=== PATIENT | male | born 1995 | race Caucasian/White ===

== ENCOUNTER 2020-02-16 13:35 | Observation (INO) | payer SELFPAY ==
[~2020-02-16 13:35] MED LIST: GLYCOPYRROLATE 1 MG/5 ML VIAL ONE; NEOSTIGMINE METHYLSULFATE 10 MG/10 ML VIAL ONE
--- NOTE | 2020-02-16 14:10 | ER Document Report ---
ED Medical Screen (RME) - General Chief Complaint: Chest Pain Stated Complaint: CHEST PAIN Time Seen by Provider: 02/16/20 14:06 Mode of Arrival: Ambulatory Information source: Patient Notes: 24-year-old male presented to ED for complaint of epigastric/chest/abdominal pain. He states he is also been short of breath. He states the symptoms started on Friday. He denies any fevers throughout this. He states he has not been around anyone that had the coronavirus of any areas that have high incidence of morales virus. Patient is alert oriented respirations regular nonlabored at this time. He states he has had this pain in the past but this is the first time in 3 to 4 months. He states they have never really told him what the pain is from. Patient is alert oriented respirations regular nonlabored speaking in full sentences. I have greeted and performed a rapid initial assessment of this patient. A comprehensive ED assessment and evaluation of the patient, analysis of test results and completion of medical decision making process will be conducted by an additional ED providers. Past Medical History - General Information source: Patient - Social History Cigarette use (# per day): Yes - Vapor cigarette Frequency of alcohol use: Occasional Drug Abuse: None Occupation: Unemployed Lives with: Family Family history: Reviewed & Not Pertinent - Past Medical History Cardiac Medical History: Reports: None Pulmonary Medical History: Reports: None EENT Medical History: Reports: None Neurological Medical History: Reports: None Endocrine Medical History: Reports: None Renal/ Medical History: Reports: None Malignancy Medical History: Reports None GI Medical History: Reports: None Musculoskeltal Medical History: Reports None Skin Medical History: Reports None Psychiatric Medical History: Reports: Hx Anxiety, Hx Attention Deficit Hyperactivity Disorder, Hx Depression, Hx Post Traumatic Stress Disorder Traumatic Medical History: Reports: None Infectious Medical History: Reports: None Surgical Hx: Negative Past Surgical History: Reports: None - Immunizations Immunizations up to date: Yes Hx Diphtheria, Pertussis, Tetanus Vaccination: Yes - 2019 Physical Exam - Vital signs Vitals: Temp Pulse Resp BP Pulse Ox 98 F 92 24 H 152/85 H 100 02/16/20 13:55 02/16/20 13:55 02/16/20 13:55 02/16/20 13:55 02/16/20 13:55 Course - Vital Signs Vital signs: Temp Pulse Resp BP Pulse Ox 98 F 92 24 H 152/85 H 100 02/16/20 13:55 02/16/20 13:55 02/16/20 13:55 02/16/20 13:55 02/16/20 13:55
[2020-02-16] MEDS ORDERED: ASPIRIN 81 MG TABLET, CHEWABLE PO ONE (14:11)
--- NOTE | 2020-02-16 14:48 | ER Document Report ---
ED GI/ - General Chief Complaint: Epigastric Pain Stated Complaint: CHEST PAIN Time Seen by Provider: 02/16/20 14:06 Mode of Arrival: Ambulatory Notes: CHIEF COMPLAINT: Epigastric abdominal pain, shortness of breath and chest discomfort HPI: 24-year-old otherwise healthy male presenting for evaluation of a constant epigastric discomfort with nausea that began 2 days ago. Patient believes that he has some shortness of breath and chest discomfort related to this because of the discomfort and nausea. States he had something similar 1.5 years ago, states he had a chest x-ray done and was told he would be fine. States he has not been able to eat or drink because of the nausea associated with eating or drinking. Has not had a fever. No diarrhea. States sister had her gallbladder out in her early 20s ROS: See HPI - all other systems were reviewed and are otherwise negative Constitutional: no fever Eyes: no drainage, no blurred vision ENT: no runny nose, no sore throat Cardiovascular: Positive chest pain Resp: Positive SOB, no cough GI: no vomiting, no diarrhea, + abdominal pain, positive nausea : no dysuria Integumentary: no rash Allergy: no hives Musculoskeletal: no extremity pain or swelling Neurological: no numbness/tingling, no weakness MEDICATIONS: I agree with the patient medications as charted by the RN. ALLERGIES: I agree with the allergies as charted by the RN. PAST MEDICAL HISTORY/PAST SURGICAL HISTORY: Reviewed and agree as charted by RN. SOCIAL HISTORY: Reviewed and agree as charted by RN. FAMILY HISTORY: No significant familial comorbid conditions directly related to patient complaint EXAM: Reviewed vital signs as charted by RN. CONSTITUTIONAL: Alert and oriented and responds appropriately to questions. Well-appearing; well-nourished HEAD: Normocephalic; atraumatic EYES: PERRL; Conjunctivae clear, sclerae non-icteric ENT: normal nose; no rhinorrhea; moist mucous membranes; pharynx without lesions noted, no uvula edema or deviation, no tonsillar hypertrophy, phonation normal NECK: Supple without meningismus; non-tender; no cervical lymphadenopathy, no masses CARD: RRR; no murmurs, no clicks, no rubs, no gallops; symmetric distal pulses RESP: Normal chest excursion without splinting or tachypnea; breath sounds clear and equal bilaterally; no wheezes, no rhonchi, no rales, pulse oximetry 100% on room air not hypoxic ABD/GI: Normal bowel sounds; non-distended; soft, moderate tenderness to the epigastric region on palpation, mild tenderness in the right upper quadrant on palpation, no rebound, no guarding; no palpable organomegaly or masses. BACK: The back appears normal and is non-tender to palpation, there is no CVA tenderness EXT: Normal ROM in all joints; non-tender to palpation; no cyanosis, no effusions, no edema SKIN: Normal color for age and race; warm; dry; good turgor; no acute lesions noted NEURO: Moves all extremities equally; Motor and sensory function intact PSYCH: The patient's mood and manner are appropriate. Grooming and personal hygiene are appropriate. MDM: 24-year-old male with epigastric pain for 2 days, initial cardiac work-up from triage process. Believe this is more likely GI issue rather than a cardiac issue and is otherwise healthy male. He has reproducible abdominal pain. Will add lipase, ultrasound of the right upper quadrant to evaluate for cholelithiasis or cholecystitis - Related Data Allergies/Adverse Reactions: No Known Allergies Allergy (Verified 02/16/20 14:17) Home Medications: zoloft. buspirone. trazadone. adderall Past Medical History - General Information source: Patient - Social History Smoking Status: Never Smoker Cigarette use (# per day): Yes - Vapor cigarette Chew tobacco use (# tins/day): No Frequency of alcohol use: Occasional Drug Abuse: None Occupation: Unemployed Lives with: Family Family History: Reviewed & Not Pertinent Patient has suicidal ideation: No Patient has homicidal ideation: No - Past Medical History Cardiac Medical History: Reports: None Pulmonary Medical History: Reports: None EENT Medical History: Reports: None Neurological Medical History: Reports: None Endocrine Medical History: Reports: None Renal/ Medical History: Reports: None Malignancy Medical History: Reports None GI Medical History: Reports: None Musculoskeletal Medical History: Reports None Skin Medical History: Reports None Psychiatric Medical History: Reports: Hx Anxiety, Hx Attention Deficit Hyperactivity Disorder, Hx Depression, Hx Post Traumatic Stress Disorder Traumatic Medical History: Reports: None Infectious Medical History: Reports: None Surgical Hx: Negative Past Surgical History: Reports: None - Immunizations Immunizations up to date: Yes Hx Diphtheria, Pertussis, Tetanus Vaccination: Yes - 2019 Physical Exam - Vital signs Vitals: Temp Pulse Resp BP Pulse Ox 98 F 92 24 H 152/85 H 100 02/16/20 13:55 02/16/20 13:55 02/16/20 13:55 02/16/20 13:55 02/16/20 13:55 Course - Re-evaluation Re-evalutation: 02/16/20 16:18 Patient shows a mild leukocytosis of 14.4. Liver functions and lipase are normal. His ultrasound of the gallbladder is abnormal. Shows thickening of the gallbladder wall diffusely, radiologist believes it might be a chronic in flammatory issue although patient has only been having pain for 2 days. Shows no gallstones. Dr. Ozuna is in the OR I left a message for him through the OR nurse. 02/16/20 16:[address] Ozuna, he believes patient has cholecystitis will take patient to the OR - Vital Signs Vital signs: Temp Pulse Resp BP Pulse Ox 98.4 F 78 18 159/94 H 96 02/16/20 15:52 02/16/20 15:52 02/16/20 15:52 02/16/20 15:52 02/16/20 15:52 - Laboratory Result Diagrams: 02/16/20 15:16 02/16/20 15:16 Laboratory results interpreted by me: 02/16/20 02/16/20 14:13 15:16 WBC 14.4 H Absolute Neuts (auto) 11.5 H Seg Neutrophils % 79.9 H Urine Protein 30 H Urine Ketones TRACE H Urine Ascorbic Acid 40 H Discharge - Discharge Clinical Impression: Acute cholecystitis Condition: Stable Disposition: ADMITTED INPATIENT Admitting Provider: Dodieist Delia Ozuna Unit Admitted: Surgical Floor
--- NOTE | 2020-02-16 14:56 | RADIOLOGY REPORT (SQ) ---
EXAM DESCRIPTION: CHEST 2 VIEWS COMPLETED DATE/TIME: 02/16/2020 2:46 pm REASON FOR STUDY: Chest pain/epigastric pain COMPARISON: None. EXAM PARAMETERS: NUMBER OF VIEWS: two views TECHNIQUE: Digital Frontal and Lateral radiographic views of the chest acquired. RADIATION DOSE: NA LIMITATIONS: none FINDINGS: LUNGS AND PLEURA: No opacities, masses or pneumothorax. No pleural effusion. MEDIASTINUM AND HILAR STRUCTURES: No masses or contour abnormalities. HEART AND VASCULAR STRUCTURES: Heart normal size. No evidence for failure. BONES: No acute findings. HARDWARE: None in the chest. OTHER: No other significant finding. IMPRESSION: NO ACUTE RADIOGRAPHIC FINDING IN THE CHEST. TECHNICAL DOCUMENTATION: JOB ID: [id number] 2010 [employer]- All Rights Reserved Reading location - IP/workstation name: [email or web address]
[2020-02-16 15:14] LABS: APPEARANCE,URINE SLIGHTLY-CLOUDY; BILIRUBIN,URINE NEGATIVE (NEGATIVE); COLOR,URINE YELLOW; GLUCOSE, URINE NEGATIVE (NEGATIVE); KETONES,URINE TRACE mg/dL (NEGATIVE); PROTEIN,URINE 30 mg/dL (NEGATIVE); URINE SPECIFIC GRAVITY 1.025; UROBILINOGEN,URINE NEGATIVE mg/dL (<2.0)
[2020-02-16] MEDS ORDERED: ONDANSETRON HCL INJ/PF 4 MG/2 ML SDV IV ONE ×2 (15:29→16:32)
[2020-02-16 15:32] LABS: ABSOLUTE BASOPHILS # (AUTO) 0.1 10^3/uL (0.0-0.2); ABSOLUTE LYMPHOCYTES (AUTO) 2.1 10^3/uL (0.5-4.7); ABSOLUTE MONOCYTES (AUTO) 0.7 10^3/uL (0.1-1.4); ABSOLUTE NEUT (AUTO) 11.5 10^3/uL (1.7-8.2); BASOPHILS % (AUTO) 0.4 % (0-2); EOSINOPHILS % (AUTO) 0.2 % (0-6); HEMATOCRIT 44.8 % (37.9-51.0); HEMOGLOBIN 15.5 g/dL (13.5-17.0); LYMPHOCYTES % (AUTO) 14.7 % (13-45); MEAN CORPUSCULAR HEMOGLOBIN 30.3 pg (27.0-33.4); MEAN CORPUSCULAR HGB CONC 34.6 g/dL (32.0-36.0); MEAN CORPUSCULAR VOLUME 88 fl (80-97); MONOCYTES % (AUTO) 4.8 % (3-13); PLATELET COUNT 299 10^3/uL (150-450); RED BLOOD COUNT 5.11 10^6/uL (4.35-5.55); RED CELL DISTRIBUTION WIDTH 12.8 % (11.5-14.0); SEGMENTED NEUTROPHILS % (AUTO) 79.9 % (42-78); TOTAL CELLS COUNTED % (AUTO) 100 %; WHITE BLOOD COUNT 14.4 10^3/uL (4.0-10.5)
[2020-02-16] MEDS ORDERED: MORPHINE SULFATE 10 MG/ML INJ IV ONE ×2 (15:48→17:22)
[2020-02-16] MEDS ORDERED: NORMAL SALINE 1000 ML 1,000 ML IV ONE (15:49)
[2020-02-16 15:52] LABS: ALBUMIN 4.8 g/dL (3.5-5.0); ALKALINE PHOSPHATASE 122 U/L (38-126); ANION GAP 11 (5-19); ASPARTATE AMINO TRANSFERASE 21 U/L (17-59); BILIRUBIN,TOTAL 0.7 mg/dL (0.2-1.3); BLOOD UREA NITROGEN 9 mg/dL (7-20); CALCIUM 9.8 mg/dL (8.4-10.2); CARBON DIOXIDE 28 mmol/L (22-30); CHLORIDE 99 mmol/L (98-107); GLUCOSE 98 mg/dL (75-110); POTASSIUM 4.5 mmol/L (3.6-5.0)
--- NOTE | 2020-02-16 16:02 | RADIOLOGY REPORT (SQ) ---
EXAM DESCRIPTION: U/S ABDOMEN LIMITED W/O DOP COMPLETED DATE/TIME: 02/16/2020 3:47 pm REASON FOR STUDY: epigastric pain COMPARISON: None. TECHNIQUE: Dynamic and static grayscale images acquired of the abdomen and recorded on PACS. Additio nal selected color Doppler and spectral images recorded. LIMITATIONS: None. FINDINGS: PANCREAS: Midline pancreas unremarkable LIVER: No masses. Echotexture normal. LIVER VASCULATURE: Normal directional flow of the main portal vein and hepatic veins. GALLBLADDER: There is diffuse gallbladder wall thickening, up to 5 mm in thickness. Several small le ss than 5 mm gallbladder polyps are present. No gallstones. No pericholecystic fluid. ULTRASOUND-DETECTED PAUL'S SIGN: Negative. INTRAHEPATIC DUCTS AND COMMON DUCT: CBD and intrahepatic ducts normal caliber. No filling defects. INFERIOR VENA CAVA: Normal flow. AORTA: No aneurysm. RIGHT KIDNEY: Normal size. Normal echogenicity. No solid or suspicious masses. No hydronephrosis. No calcifications. PERITONEAL AND RIGHT PLEURAL SPACE: No ascites or effusions. OTHER: No other significant findings. IMPRESSION: Diffuse gallbladder wall thickening and gallbladder wall polyp formation from chronic in flammation No gallstones. No biliary ductal dilatation TECHNICAL DOCUMENTATION: JOB ID: [id number] 2010 [employer]- All Rights Reserved Reading location - IP/workstation name: [id number]
[2020-02-16] MEDS ORDERED: NORMAL SALINE 1000 ML 1,000 ML IV PRN (16:56)
[2020-02-16] MEDS ORDERED: MORPHINE SULFATE 10 MG/ML INJ IV PRN ×3 (16:56→20:21)
[2020-02-16] MEDS ORDERED: ONDANSETRON HCL INJ/PF 4 MG/2 ML SDV IV PRN (16:56)
[2020-02-16] MEDS ORDERED: PIPERACILLIN SODIUM/TAZOBACTAM 3.375 GM in NORMAL SALINE 100 ML IV SCH (18:00)
[2020-02-16] MEDS ORDERED: BUPIVACAINE HCL 0.25 % INJ/PF (2.5 MG/1 ML) 30 ML VIAL ONE (18:14)
[2020-02-16] MEDS ORDERED: PROPOFOL INJ 200 MG/20 ML VIAL IV ONE (18:16)
[2020-02-16] MEDS ORDERED: ONDANSETRON HCL INJ/PF 4 MG/2 ML SDV ONE (18:16)
[2020-02-16] MEDS ORDERED: MIDAZOLAM 2 MG/2 ML INJ ONE (18:16)
[2020-02-16] MEDS ORDERED: HYDROMORPHONE HCL INJ/PF 2 MG/ML AMPULE ONE (18:16)
[2020-02-16] MEDS ORDERED: FENTANYL CITRATE INJ/PF 100 MCG/2 ML AMPUL ONE (18:16)
[2020-02-16] MEDS ORDERED: DEXAMETHASONE SOD PHOSPHATE INJ 4 MG/1 ML VIAL ONE (18:16)
[2020-02-16] MEDS ORDERED: DEXMEDETOMIDINE INJ 80 MCG/20 ML VIAL IV ONE (18:57)
[2020-02-16] MEDS ORDERED: OXYCODONE-ACETAMINOPHEN 5-325 MG TABLET PO PRN ×2 (19:09)
[2020-02-16] MEDS ORDERED: FENTANYL CITRATE INJ/PF 100 MCG/2 ML AMPUL IV PRN ×3 (19:09)
[2020-02-16] MEDS ORDERED: PROMETHAZINE HCL INJ 25 MG/1 ML VIAL IV PRN ×2 (19:09)
[2020-02-16] MEDS ORDERED: DIPHENHYDRAMINE HCL 50 MG/ML VIAL IV PRN (19:09)
--- NOTE | 2020-02-16 20:01 | EKG REPORT ---
SEVERITY:- NORMAL ECG - SINUS RHYTHM : Confirmed by: Diandra Perez MD 16-Feb-2020 20:00:43
--- NOTE | 2020-02-16 20:30 | PDOC H&P ---
History of Present Illness Patient complains of: Epigastric, right upper quadrant pain History of Present Illness: LARS OSBORNE is a 24 year old male with a 2-day history of sharp, stabbing epigastric and right upper quadrant pain. He has had multiple episodes of nausea and vomiting. He denies melena, hematochezia, diarrhea, constipation, hematemesis, dizziness, blurry vision, chest pain, shortness of breath. He does have a history of anxiety, sleep apnea. Patient could not keep any solids or liquids down, and presented to the emergency department for evaluation. He rates his pain is 9 out of 10. It is epigastric and right upper quadrant. It radiates around to the back. Past Medical History Cardiac Medical History: Reports: None Pulmonary Medical History: Reports: None EENT Medical History: Reports: None Neurological Medical History: Reports: None Endocrine Medical History: Reports: None Renal/ Medical History: Reports: None Malignancy Medical History: Reports: None GI Medical History: Reports: None Musculoskeltal Medical History: Reports: None Skin Medical History: Reports: None Psychiatric Medical History: Reports: Attention Deficit Hyperactivity Disorder, Depression, Post Traumatic Stress Disorder Traumatic Medical History: Reports: None Infectious Medical History: Reports: None Past Surgical History Past Surgical History: Reports: None Social History Lives with: Family Smoking Status: Never Smoker Electronic Cigarette use?: Yes Family History Family History: Reviewed & Not Pertinent Parental Family History Reviewed: Yes Children Family History Reviewed: Yes Sibling(s) Family History Reviewed.: Yes Medication/Allergy Home Medications: Buspirone HCl [Buspar 10 mg Tablet] 10 mg PO TID 02/16/20 Dextroamphetamine/Amphetamine [Adderall 10 mg Tablet] 10 mg PO BID 02/16/20 Sertraline HCl [Zoloft 50 mg Tablet] 100 mg PO DAILY 02/16/20 Trazodone HCl 150 mg PO QHS 02/16/20 Allergies/Adverse Reactions: No Known Allergies Allergy (Verified 02/16/20 14:17) Review of Systems Constitutional: PRESENT: anorexia. ABSENT: chills, fatigue, fever(s), headache(s), weakness Nose, Mouth, and Throat: ABSENT: sore throat Cardiovascular: ABSENT: chest pain Respiratory: ABSENT: cough, dyspnea Gastrointestinal: PRESENT: abdominal pain, nausea, vomiting. ABSENT: heartburn, hematemesis, hematochezia, melena Genitourinary: ABSENT: dysuria Musculoskeletal: ABSENT: back pain Integumentary: ABSENT: pruritus, rash Neurological: ABSENT: confusion, convulsions, dizziness Psychiatric: ABSENT: anxiety Endocrine: ABSENT: cold intolerance Hematologic/Lymphatic: ABSENT: easy bleeding, easy bruising Physical Exam Vital Signs: Temp Pulse Resp BP Pulse Ox 98.4 F 78 18 159/94 H 96 02/16/20 15:52 02/16/20 15:52 02/16/20 15:52 02/16/20 15:52 02/16/20 15:52 Intake & Output 02/15/20 02/16/20 02/17/20 06:59 06:59 06:59 Intake Total 1000 Balance 1000 Weight 116.8 kg General appearance: PRESENT: no acute distress, cooperative Head exam: PRESENT: atraumatic, normocephalic Eye exam: PRESENT: EOMI, PERRLA. ABSENT: scleral icterus Mouth exam: PRESENT: moist, neck supple Neck exam: ABSENT: meningismus, tenderness, thyromegaly, tracheal deviation Respiratory exam: PRESENT: unlabored. ABSENT: tachypnea Cardiovascular exam: ABSENT: tachycardia Vascular exam: PRESENT: normal capillary refill GI/Abdominal exam: PRESENT: Delgado's sign, soft, tenderness. ABSENT: distended, firm, rigid Rectal exam: PRESENT: deferred Extremities exam: ABSENT: clubbing Musculoskeletal exam: ABSENT: deformity Neurological exam: PRESENT: alert, awake, oriented to person, oriented to place, oriented to time, oriented to situation, CN II-XII grossly intact Psychiatric exam: ABSENT: agitated, anxious, depressed Focused psych exam: ABSENT: delusional Skin exam: ABSENT: cyanosis, erythema, jaundice Results Laboratory Results: 02/16/20 15:16 02/16/20 15:16 02/16/20 02/16/20 02/16/20 14:13 15:16 15:16 WBC 14.4 H RBC 5.11 Hgb 15.5 Hct 44.8 MCV 88 MCH 30.3 MCHC 34.6 RDW 12.8 Plt Count 299 Seg Neutrophils % 79.9 H Sodium 137.9 Potassium 4.5 Chloride 99 Carbon Dioxide 28 Anion Gap 11 BUN 9 Creatinine 0.76 Est GFR ( Amer) > 60 Glucose 98 Calcium 9.8 Total Bilirubin 0.7 AST 21 Alkaline Phosphatase 122 Total Protein 8.0 Albumin 4.8 Lipase 44.0 Urine Color YELLOW Urine Appearance SLIGHTLY-CLOUDY Urine pH 6.0 Ur Specific [place] 1.025 Urine Protein 30 H Urine Glucose (UA) NEGATIVE Urine Ketones TRACE H Urine Blood NEGATIVE Urine RBC (Auto) 1 02/16/20 15:16 Troponin I < 0.012 Impressions: Chest X-Ray 02/16/20 14:10 IMPRESSION: NO ACUTE RADIOGRAPHIC FINDING IN THE CHEST. Abdomen Ultrasound 02/16/20 14:52 IMPRESSION: Diffuse gallbladder wall thickening and gallbladder wall polyp formation from chronic inflammation No gallstones. No biliary ductal dilatation Assessment & Plan - Diagnosis (1) Acute cholecystitis Is this a current diagnosis for this admission?: Yes - Plan Summary Plan Summary: 24-year-old male with complaints of epigastric abdominal pain, radiating around to his right upper quadrant and right flank. The patient has a thickened gallbladder wall, and elevated white count. I believe he is experiencing acute cholecystitis. Plan for admission, intravenous antibiotics, and surgical intervention. This has been discussed with the patient at length, and he is in agreement with the treatment plan. Risks/benefits discussed, informed consent obtained, and all questions answered.
[2020-02-16] MEDS: KETOROLAC TROMETHAMINE INJ/PF 30 MG/1 ML SDV IV SCH (22:15)
--- NOTE | 2020-02-16 22:45 | Operative Report ---
Nonrecallable Operative Report DATE OF SURGERY: 02/16/20 PREOPERATIVE DIAGNOSIS: Acute cholecystitis POSTOPERATIVE DIAGNOSIS: Acute, purulent cholecystitis. OPERATION: Laparoscopic cholecystectomy SURGEON: LARS MCGREGOR ANESTHESIA: GA TISSUE REMOVED OR ALTERED: Gallbladder COMPLICATIONS: None apparent ESTIMATED BLOOD LOSS: Minimal PROCEDURE: Drains/implants: 15 [place] round Griffin drain. Procedure in detail: After informed consent was obtained, the patient was brought to the operating room and laid in the supine position. The area of the abdomen was prepped and draped in a normal sterile fashion. A supraumbilical incision was created with a 15 blade scalpel. Dissection was carried through the subcutaneous tissues using sharp and blunt dissection. The cicatrix was identified, grasped with a Kai clamp, and retracted upwards. The linea alba fascia was incised sharply, the abdomen was entered sharply. The balloon trocar was inserted, and pneumoperitoneum was achieved. A subxiphoid 5 mm port was then placed under direct laparoscopic visualization. 2 more 5 mm ports were placed in the right upper quadrant in similar fashion. Atraumatic graspers were then placed through the 5 mm ports. The gallbladder was acutely inflamed, tense, and distended. A cyst aspiration needle was inserted into the dome of the gallbladder, and approximately 120 cc of thick, purulent material was aspirated. The gallbladder was then retracted cephalad and laterally. Dissection was begun in triangle of Calot, however it was exceedingly difficult. The gallbladder was then freed from the liver using a mixture of sharp dissection, blunt dissection, and electrocautery. Once the gallbladder was completely freed, a PDS Endoloop was secured around the infundibulum. This was done in order to avoid all of the inflammation found in and around the hilum. Once the PDS Endoloop was secured, the gallbladder was amputated and placed into an Endo Catch bag. The gallbladder was then pulled out through the supraumbilical incision. The camera was reinserted. The hilum was inspected. It was found to be free of any leakage of blood or bile. The abdomen was then copiously irrigated and suctioned until the effluent was clear. After this was completed, a 15 [place] round Griffin drain was inserted into the lateralmost trocar. It was situated into the gallbladder fossa. The drain was sutured into place using 2-0 nylon suture. The 5 mm trochars were then removed under direct laparoscopic visualization. The supraumbilical trocar was removed, and pneumoperitoneum was relieved. The supraumbilical fascia was closed using 0 Vicryl suture in [id number] fashion. The overlying skin was closed using 4-0 Vicryl Rapide suture in subcuticular fashion. All sponge, instrument, and needle counts were correct x2. Condition: Stable.
[2020-02-17] MEDS: HYDROCODONE/ACETAMINOPHEN 10-325 MG TABLET PO PRN ×2 (01:40→11:23)
[2020-02-17] MEDS: KETOROLAC TROMETHAMINE INJ/PF 30 MG/1 ML SDV IV SCH ×2 (05:28→14:24)
[2020-02-17 05:40] LABS: ABSOLUTE BASOPHILS # (AUTO) 0.1 10^3/uL (0.0-0.2); ABSOLUTE LYMPHOCYTES (AUTO) 1.9 10^3/uL (0.5-4.7); ABSOLUTE MONOCYTES (AUTO) 0.6 10^3/uL (0.1-1.4); ABSOLUTE NEUT (AUTO) 13.3 10^3/uL (1.7-8.2); BASOPHILS % (AUTO) 0.3 % (0-2); HEMATOCRIT 39.7 % (37.9-51.0); HEMOGLOBIN 13.5 g/dL (13.5-17.0); MEAN CORPUSCULAR HEMOGLOBIN 29.6 pg (27.0-33.4); MEAN CORPUSCULAR HGB CONC 33.9 g/dL (32.0-36.0); MEAN CORPUSCULAR VOLUME 87 fl (80-97); MONOCYTES % (AUTO) 3.9 % (3-13); PLATELET COUNT 265 10^3/uL (150-450); RED BLOOD COUNT 4.54 10^6/uL (4.35-5.55); RED CELL DISTRIBUTION WIDTH 12.7 % (11.5-14.0); SEGMENTED NEUTROPHILS % (AUTO) 83.8 % (42-78); TOTAL CELLS COUNTED % (AUTO) 100 %; WHITE BLOOD COUNT 15.9 10^3/uL (4.0-10.5)
[2020-02-17 05:42] LABS: ALKALINE PHOSPHATASE 124 U/L (38-126); ANION GAP 10 (5-19); ASPARTATE AMINO TRANSFERASE 71 U/L (17-59); BILIRUBIN,DIRECT 0.3 mg/dL (0.0-0.4); BILIRUBIN,TOTAL 0.7 mg/dL (0.2-1.3); BLOOD UREA NITROGEN 11 mg/dL (7-20); CALCIUM 9.3 mg/dL (8.4-10.2); CARBON DIOXIDE 23 mmol/L (22-30); CHLORIDE 103 mmol/L (98-107); GLUCOSE 130 mg/dL (75-110); POTASSIUM 4.7 mmol/L (3.6-5.0); TOTAL PROTEIN 7.1 g/dL (6.3-8.2)
--- NOTE | 2020-02-17 13:18 | PDOC DISCHARGE SUMMARY ---
General - Admit/Disc Date/PCP Admission Date/Primary Care Provider: 02/16/20 17:06 Discharge Date: 02/17/20 - Discharge Diagnosis Final Diagnosis: Acute cholecystitis Attention deficit disorder - Assessment Summary: Patient admitted for abdominal pains and ultrasound showed thickened gallbladder wall no definite stones but there appears to be polyp. Patient underwent laparoscopic cholecystectomy by Dr. Ozuna on 08/03/1820. He noted purulent acute cholecystitis. A drain was left and patient will be discharged with the drain in place to be removed in the office in about a week. Patient instructed to call the clinic if he has increasing pains or fever or nausea and vomiting. Or if unable to get the clinic to just come back to the ED. - Additional Information Resuscitation Status: Full Code Discharge Diet: As Tolerated Discharge Activity: No Lifting Over 10 Pounds - For 1 to 2 weeks Referrals: LARS OZUAN MD [ACTIVE STAFF] - 02/22/20 2:45 pm (F/U IN ONE WEEK FOR POSSIBLE REMOVAL OF DRAIN. BRING LIST OF CURRENT MEDICATIONS AND PICTURE ID) Prescriptions: Ketorolac Tromethamine [Toradol Inj/Pf 30 mg/1 ml Sdv] 30 mg IV Q8 #20 vial Home Medications: Buspirone HCl [Buspar 10 mg Tablet] 10 mg PO TID 02/16/20 Dextroamphetamine/Amphetamine [Adderall 10 mg Tablet] 10 mg PO BID 02/16/20 Sertraline HCl [Zoloft 50 mg Tablet] 100 mg PO DAILY 02/16/20 Trazodone HCl 150 mg PO QHS 02/16/20 Ketorolac Tromethamine [Toradol Inj/Pf 30 mg/1 ml Sdv] 30 mg IV Q8 #20 vial 02/17/20 History of Present Illiness History of Present Illness: LARS OSBORNE is a 24 year old male Hospital Course Hospital Course: Patient underwent laparoscopic cholecystectomy by Dr. Ozuna on 02/16/2020. Patient noted to have suppurative acute cholecystitis but no stones noted. Drain was left in place to be removed in the clinic in about 1 to 2 weeks. Physical Exam Vital Signs: Temp Pulse Resp BP Pulse Ox 98.2 F 70 20 115/52 L 96 02/17/20 08:32 02/17/20 08:32 02/17/20 08:32 02/17/20 08:32 02/17/20 08:32 Intake & Output 02/16/20 02/17/20 02/18/20 06:59 06:59 06:59 Intake Total 5250 Output Total 2790 Balance 2460 Weight 116.8 kg Exam: Noted positive Delgado sign with tenderness in the right upper quadrant and epigastric areas Results Laboratory Results: WBC 15.9 10^3/uL (4.0-10.5) H 02/17/20 04:56 RBC 4.54 10^6/uL (4.35-5.55) 02/17/20 04:56 Hgb 13.5 g/dL (13.5-17.0) 02/17/20 04:56 Hct 39.7 % (37.9-51.0) 02/17/20 04:56 MCV 87 fl (80-97) 02/17/20 04:56 MCH 29.6 pg (27.0-33.4) 02/17/20 04:56 MCHC 33.9 g/dL (32.0-36.0) 02/17/20 04:56 RDW 12.7 % (11.5-14.0) 02/17/20 04:56 Plt Count 265 10^3/uL (150-450) 02/17/20 04:56 Lymph % (Auto) 12.0 % (13-45) L 02/17/20 04:56 [place] % (Auto) 3.9 % (3-13) 02/17/20 04:56 Eos % (Auto) 0.0 % (0-6) 02/17/20 04:56 Baso % (Auto) 0.3 % (0-2) 02/17/20 04:56 Absolute Neuts (auto) 13.3 10^3/uL (1.7-8.2) H 02/17/20 04:56 Absolute Lymphs (auto) 1.9 10^3/uL (0.5-4.7) 02/17/20 04:56 Absolute Monos (auto) 0.6 10^3/uL (0.1-1.4) 02/17/20 04:56 Absolute Eos (auto) 0.0 10^3/uL (0.0-0.6) 02/17/20 04:56 Absolute Basos (auto) 0.1 10^3/uL (0.0-0.2) 02/17/20 04:56 Seg Neutrophils % 83.8 % (42-78) H 02/17/20 04:56 Sodium 136.4 mmol/L (137-145) L 02/17/20 04:56 Potassium 4.7 mmol/L (3.6-5.0) 02/17/20 04:56 Chloride 103 mmol/L (98-107) 02/17/20 04:56 Carbon Dioxide 23 mmol/L (22-30) 02/17/20 04:56 Anion Gap 10 (5-19) 02/17/20 04:56 BUN 11 mg/dL (7-20) 02/17/20 04:56 Creatinine 0.63 mg/dL (0.52-1.25) 02/17/20 04:56 Est GFR ( Amer) > 60 (>60) 02/17/20 04:56 Est GFR (MDRD) Non-Af > 60 (>60) 02/17/20 04:56 Glucose 130 mg/dL (75-110) H 02/17/20 04:56 Calcium 9.3 mg/dL (8.4-10.2) 02/17/20 04:56 Total Bilirubin 0.7 mg/dL (0.2-1.3) 02/17/20 04:56 Direct Bilirubin 0.3 mg/dL (0.0-0.4) 02/17/20 04:56 Neonat Total Bilirubin Not Reportable 02/17/20 04:56 Neonat Direct Bilirubin Not Reportable 02/17/20 04:56 Neonat Indirect Bili Not Reportable 02/17/20 04:56 AST 71 U/L (17-59) H 02/17/20 04:56 ALT 57 U/L (<50) H 02/17/20 04:56 Alkaline Phosphatase 124 U/L (38-126) 02/17/20 04:56 Troponin I < 0.012 ng/mL 02/16/20 15:16 Total Protein 7.1 g/dL (6.3-8.2) 02/17/20 04:56 Albumin 4.0 g/dL (3.5-5.0) 02/17/20 04:56 Lipase 44.0 U/L (23-300) 02/16/20 15:16 Urine Color YELLOW 02/16/20 14:13 Urine Appearance SLIGHTLY-CLOUDY 02/16/20 14:13 Urine pH 6.0 (5.0-9.0) 02/16/20 14:13 Ur Specific [place] 1.025 02/16/20 14:13 Urine Protein 30 mg/dL (NEGATIVE) H 02/16/20 14:13 Urine Glucose (UA) NEGATIVE mg/dL (NEGATIVE) 02/16/20 14:13 Urine Ketones TRACE mg/dL (NEGATIVE) H 02/16/20 14:13 Urine Blood NEGATIVE (NEGATIVE) 02/16/20 14:13 Urine Nitrite (Reflex) NEGATIVE (NEGATIVE) 02/16/20 14:13 Urine Bilirubin NEGATIVE (NEGATIVE) 02/16/20 14:13 Urine Urobilinogen NEGATIVE mg/dL (<2.0) 02/16/20 14:13 Leukocyte Esterase Rfl NEGATIVE (NEGATIVE) 02/16/20 14:13 Urine RBC (Auto) 1 /HPF 02/16/20 14:13 U Hyaline Cast (Auto) 1 /LPF 02/16/20 14:13 Urine Bacteria (Auto) TRACE /HPF 02/16/20 14:13 Urine WBC (Reflex) 3 /HPF 02/16/20 14:13 Squamous Epi Cells Auto 1 /HPF 02/16/20 14:13 Urine Mucus (Auto) MOD /LPF 02/16/20 14:13 Urine Ascorbic Acid 40 (NEGATIVE) H 02/16/20 14:13 02/16/20 15:16 Troponin I < 0.012 Impressions: Chest X-Ray 02/16/20 14:10 IMPRESSION: NO ACUTE RADIOGRAPHIC FINDING IN THE CHEST. Abdomen Ultrasound 02/16/20 14:52 IMPRESSION: Diffuse gallbladder wall thickening and gallbladder wall polyp formation from chronic inflammation No gallstones. No biliary ductal dilatation Plan Health Concerns: Patient to continue to eat well and eventually to have the drain removed in about a week in the surgical clinic Plan of Treatment: To come to the surgical clinic in about a week for removal of the drain Goals: To continue to be asymptomatic from the gallbladder symptoms Time Spent: Less than 30 Minutes
[2020-02-17 17:25] VITALS: BP 107/49
== END 2020-02-17 14:36 | disposition home or self-care (01) ==
LOC: ER 13:35 → EH 17:06 → 4W 21:20
PROVIDERS: ATTEND Surgery
DX: K80.10 Calculus of gallbladder with chronic cholecystitis without obstruction (principal); R06.02 Shortness of breath; R07.89 Other chest pain; F17.290 Nicotine dependence, other tobacco product, uncomplicated; F90.9 Attention-deficit hyperactivity disorder, unspecified type; F32.9 Major depressive disorder, single episode, unspecified; Z79.899 Other long term (current) drug therapy
CPT/HCPCS: 93005; 96376; 99285; 96361; 96374; 96375; 36415 ×2; 83690; 85025 ×2; 80053 ×2; 81001; 84484; 88304 ×2; 71046; 76705; 94799; 93010; 47562; G0378 ×3; J2250; J1100; J3010; J1885 ×2; J2270; J2710; J1170; J2405; J7050; J7030; J2704; J2543; J3490 ×2; 790